=== PATIENT | female | born 1980 | race Two or more races ===

== ENCOUNTER 2024-02-25 17:19 | Emergency (ER) | payer SELFPAY ==
[~2024-02-25] VITALS: Ht 165.1 cm; Wt 72.7 kg
[2024-02-25 17:25] VITALS: BP 135/102; PULSE 127; RESP 22; O2SAT 100
[2024-02-25] MEDS ORDERED: LORazepam 2MG/ML-1ML VIAL IV ONE (17:45)
[2024-02-25] MEDS ORDERED: ASPirin 325 MG TAB PO ONE (18:00)
[2024-02-25 18:28] LABS: Basophils # (auto) 0.1 10 ^3/uL (0-0.2); Basophils % (auto) 0.7 % (0.0-2.0); Eosinophils # (auto) 0.1 10 ^3/uL (0-0.8); Eosinophils % (auto) 0.5 % (0.0-7.0); Hematocrit 43.2 % (36.0-46.0); Hemoglobin 14.8 g/dL (12.2-16.2); Lymphocytes # (auto) 2.3 10 ^3/uL (0.4-5.4); Lymphocytes % (auto) 20.7 % (10.0-50.0); Mean Corpuscular Hemoglobin 31.8 pg (28.0-32.0); Mean Corpuscular Hgb Conc. 34.3 g/dL (32.0-36.0); Mean Corpuscular Volume 92.9 fL (80.0-100.0); Monocytes # (auto) 0.7 10 ^3/uL (0-1.3); Monocytes % (auto) 6.5 % (0.0-12.0); Neutrophils # (auto) 8.1 10 ^3/uL (1.6-8.6); Neutrophils % (auto) 71.6 % (37.0-80.0); Platelet Count (auto) 414 10^3/uL (140-450); Red Blood Cells 4.65 10^6/uL (4.0-5.20); Red Cell Distribution Width 13.6 % (11.8-14.3); White Blood Cell 11.3 10^3/uL (4.4-10.8)
[2024-02-25 18:36] LABS: Chloride 110 mmol/L (98-107); Potassium 3.8 mmol/L (3.5-5.1); Sodium 140 mmol/L (136-145)
[2024-02-25 18:37] LABS: Anion Gap 11 (5-15); Calcium 10.4 mg/dL (8.7-10.4); Carbon Dioxide 19 mmol/L (20-31)
[2024-02-25 18:42] LABS: BUN/Creatinine Ratio 12.9 (10.0-20.0); Blood Urea Nitrogen 12 mg/dL (9-23); Glucose 98 mg/dL (74-106)
[2024-02-25 18:43] LABS: Magnesium 2.3 mg/dL (1.6-2.6)
--- NOTE | 2024-02-25 23:57 | ED.PDOC ---
HPI Comments 23-year-old male patient with past medical history of anxiety, myocardial infarction presented with chief complaint of chest pain associated with cough, dizziness, anxiety. Patient mentioned that patient started having chest pain, substernal, radiating to right-sided of the joint back, crushing in quality, 12/26 today. She mentioned associated fast breathing, cough, dizziness at started at the same time. Patient called EMS. As per EMS patient was lying in the floor hyperventilating. On presenting to the ER, patient was found to be anxious. Patient mentioned that this chest pain is similar to the panic attack that she had six months ago and not the same type of pain when she had myocardial infarction. She denied any complaints of diarrhea, vomiting, melena, hematemesis, hematochezia, orthopnea, PND, shortness of breaths, leg pain Past medical history Anxiety, myocardial infarction without PCI Past surgical history Denied Medication history Zoloft Family history Nonsignificant Allergic history No known allergies Review of system As described in the HPI Examination General Appearance: Alert, Oriented X3, Cooperative, No acute distress HEENT: EOMI Respiratory: Clear to auscultation, Normal air movement Cardiovascular: Regular rate, Normal S1, Normal S2 Abdominal: Normal bowel sounds Extremities: No cyanosis, No edema, Normal pulses, No tenderness/swelling Skin: No rashes, No breakdown Neuro: Normal speech and tone Chief Complaint: Chest Pain Time Seen by MD: 17:31 Primary Care Provider: UNKNOWN Allergies: Coded Allergies: NO KNOWN ALLERGIES (Unverified , 02/25/24) Mode of Arrival: EMS CP Differential Dx Differential Diagnosis: Anxiety / Panic Attack, Electrolyte Disorder, Heart Failure, Hyperventilation, LA Differential Diagnosis: Angina, Aortic dissection, Chest Wall Pain, Cholelithiasis, Costochondritis, Esophageal reflux/spasm, Gastritis, Myocardial Infarction, Pericarditis, Pneumonia, Pneumothorax, Pulmonary Embolus X-Ray, Labs, Meds, VS Vital Signs Date Time Temp Pulse Resp B/P (MAP) Pulse Ox O2 Delivery O2 Flow Rate FiO2 02/25/24 17:25 98.4 127 22 135/102 (113) 100 Lab Test 02/25/24 18:06 Range/Units White Blood Count 11.3 H 4.4-10.8 10^3/uL Red Blood Count 4.65 4.0-5.20 10^6/uL Hemoglobin 14.8 12.2-16.2 g/dL Hematocrit 43.2 36.0-46.0 % Mean Corpuscular Volume 92.9 80.0-100.0 fL Mean Corpuscular Hemoglobin 31.8 28.0-32.0 pg Mean Corpuscular Hemoglobin Concent 34.3 32.0-36.0 g/dL Red Cell Distribution Width 13.6 11.8-14.3 % Platelet Count 414 140-450 10^3/uL Mean Platelet Volume 7.8 6.9-10.8 fL Neutrophils (%) (Auto) 71.6 37.0-80.0 % Lymphocytes (%) (Auto) 20.7 10.0-50.0 % Monocytes (%) (Auto) 6.5 0.0-12.0 % Eosinophils (%) (Auto) 0.5 0.0-7.0 % Basophils (%) (Auto) 0.7 0.0-2.0 % Neutrophils # (Auto) 8.1 1.6-8.6 10 ^3/uL Lymphocytes # (Auto) 2.3 0.4-5.4 10 ^3/uL Monocytes # (Auto) 0.7 0-1.3 10 ^3/uL Eosinophils # (Auto) 0.1 0-0.8 10 ^3/uL Basophils # (Auto) 0.1 0-0.2 10 ^3/uL Nucleated Red Blood Cells 0.0 % D-Dimer, Quantitative 0.28 0.0-0.49 mg/L FEU Sodium Level 140 136-145 mmol/L Potassium Level 3.8 3.5-5.1 mmol/L Chloride Level 110 H 98-107 mmol/L Carbon Dioxide Level 19 L 20-31 mmol/L Anion Gap 11 5-15 Blood Urea Nitrogen 12 9-23 mg/dL Creatinine 0.93 0.550-1.02 mg/dL Glomerular Filtration Rate Calc 78 >90 mL/min BUN/Creatinine Ratio 12.9 10.0-20.0 Serum Glucose 98 74-106 mg/dL Calcium Level 10.4 8.7-10.4 mg/dL Magnesium Level 2.3 1.6-2.6 mg/dL Troponin I High Sensitivity 4 </=34 ng/L Time of 1ST Reevaluation: 19:53 Reevaluation 1ST: patiend was not found Patient Education/Counseling: Diagnosis, Treatment Family Education/Counseling: No Family Present Comments Patient presented with the chest pain, anxiety.-workup was initiated. Patient was given: IV Ativan 0.5 mg once Patient eloped from ER Departure 1 Departure Time of Disposition: 21:45 Impression: Primary Impression: Chest pain Additional Impressions: Panic attack Anxiety Disposition: 07 LEFT AWOL/ELOPED Condition: Other (undetermined) LISY WILEY RESIDENT Feb 25, 2024 23:57
--- NOTE | 2024-02-26 08:40 | ECG ---
[facility] Test Date: 2024-02-25 Test Time: 17:25:01 Pat Name: DIAMOND RODRIGUEZ Department: er Room: Gender: F [employer]: nikunj : 1980 Requested By: LISY WILEY Order Number: [id number] Reading MD: Agapito Pacheco Measurements Intervals [place] Rate: 121 P: 88 GA: 133 QRS: 84 QRSD: 159 T: 67 QT: 376 QTc: 534 Interpretive Statements Poor quality data, interpretation may be affected Sinus tachycardia Atrial premature complex Consider right atrial enlargement Nonspecific intraventricular conduction delay Inferior infarct, acute (LCx) Lateral leads are also involved Artifact in lead(s) I,II,III,aVR,aVL,aVF,V1,V2,V3,V4,V5,V6 and baseline wander in lead(s) I,II,aVR,aVF Electronically Signed On 02-29-2024 12:35:58 PST by Agapito Pacheco Please click the below link to view image of tracing.
== END 2024-02-25 21:40 | disposition left against medical advice (07) ==
LOC: ER 17:19 → EDBD 17:19 → ER 21:40
DX: R07.89 Other chest pain (principal); F41.0 Panic disorder [episodic paroxysmal anxiety]; Z79.899 Other long term (current) drug therapy
CPT/HCPCS: 36415; 80048; 83735; 84484; 85025; 85379; 93005